=== PATIENT | male | born 1970 | race African-American/Black ===

== ENCOUNTER 2019-05-14 10:06 | Outpatient (CLI) | payer SELFPAY ==
--- NOTE | 2019-05-14 10:49 | RAD ---
XR Tib Fib Lt Leg 2 View INDICATION: Chronic leg pain FINDINGS: Bones: There is healed fracture forming involving the distal tibia and fibular shafts. There is intra medullary nupur within the distal tibia. There is lateral plate and screw construct affecting the lateral malleolus. Fracture appears well-healed. Joints: There is mild osteoarthrosis of the left knee. There is partial visualization instrumentation involving the distal femur. Soft tissues: No radiopaque foreign body is evident. IMPRESSION: Healed instrumented distal tibia fibular shaft fractures. Healed lateral malleolus or fra cture. Mild osteoarthrosis of the left knee.
--- NOTE | 2019-05-14 10:50 | RAD ---
XR Foot Lt 3 View STANDARD INDICATION: Chronic left foot pain COMPARISON: None. FINDINGS: Bones: There is moderate to severe great toe MTP osteoarthrosis. There is moderate scattered IP osteo arthrosis of the forefoot. There is moderate degenerative change within the mid foot. Lisfranc alignment is preserved. There is partial visualization instrumentation involving the distal tibia. Th ere is a healed lateral malleolus fracture with instrumentation. There is moderate degenerative change of the tibiotalar joint. Joints: Degenerative changes above Lisfranc alignment: As above Soft tissues: No soft tissue injury demonstrated. No radiographic foreign body demonstrated. IMPRESSION: Scattered osteoarthrosis of the left foot. No acute fracture demonstrated. Postoperative changes of the distal left foreleg and left ankle.
--- NOTE | 2019-05-14 11:58 | RAD ---
LEFT HIP 2 VIEWS: Date: 05/14/19 HISTORY: Chronic pain in the left hip. FINDINGS/IMPRESSION: Postop changes and metallic hardware in the left femur remain in good position and alignment since . There are mild degenerative changes in the left hip joint. No acute fracture, dislocation, or bony de struction is seen. POS: [facility]
--- NOTE | 2019-05-14 12:18 | RAD ---
LEFT KNEE 3 VIEWS: Date: 05/14/19 HISTORY: Knee pain. FINDINGS: Postoperative changes are noted. Intramedullary nupur with plate and screws transfix the distal femur a nd the femoral condyles. There is intramedullary nupur in the tibia. Moderate degenerative changes at t he knee joint. Mild narrowing of the medial joint space. Mild spurring from the condyles and posterio r patella. No joint effusion. IMPRESSION: Degenerative and postoperative changes noted. POS: [facility]
--- NOTE | 2019-05-14 12:19 | RAD ---
LEFT ANKLE 3 VIEWS: HISTORY: Ankle pain. FINDINGS: There are postoperative changes at the ankle. There are old healed fractures of the distal tibia and fibula. There has been prior internal fixation of the distal fibula plate and screws and an intrame dullary nupur is seen in the tibia. There are degenerative changes of the tibiotalar joint. No fractu re or acute abnormality. No significant soft tissue swelling. IMPRESSION: Postoperative and degenerative changes of the left ankle. POS: [facility]
--- NOTE | 2019-05-14 12:19 | RAD ---
LEFT FEMUR 4 VIEWS: Date: 05/14/19 HISTORY: Left lower extremity pain. FINDINGS: There is old healed fracture of the mid shaft of the femur. Intramedullary nupur is noted in the femur. Compression screw at the femoral neck. Plate and screws in the distal femur transfixing the femoral condyles. Degenerative changes at the hip noted with mild spurring from the femoral head and acetabulum. Extrao sseous calcification overlying the greater trochanter. Mild degenerative changes at the knee. No acut e fracture. IMPRESSION: Postoperative and degenerative changes noted. POS: [facility]
== END 2019-05-14 10:07 | disposition home or self-care (01) ==
LOC: MADRAD 10:06
PROVIDERS: ATTEND Family Medicine
DX: M25.572 Pain in left ankle and joints of left foot (principal); M79.671 Pain in right foot; M25.562 Pain in left knee; G89.29 Other chronic pain; M19.072 Primary osteoarthritis, left ankle and foot; M17.12 Unilateral primary osteoarthritis, left knee; M16.12 Unilateral primary osteoarthritis, left hip; Z96.642 Presence of left artificial hip joint; Z98.890 Other specified postprocedural states; Z87.81 Personal history of (healed) traumatic fracture

== ENCOUNTER 2020-02-28 12:24 | Outpatient (CLI) | payer OTHER ==
--- NOTE | 2020-02-28 13:09 | RAD ---
EXAM: XR Lumbar Spine 2 Or 3 View PROVIDED CLINICAL HISTORY: Back pain COMPARISON: None FINDINGS: 5 nonrib-bearing lumbar-type vertebral bodies are demonstrated. Lumbar alignment appears normal. Vert ebral body heights appear preserved. There is ankylosis of the L4-5 and L5-S1 disc spaces. Advanced multilevel lumbar facet arthritis. Pedicles appear intact. Intervertebral disc space heights appear o therwise preserved. IMPRESSION: Prominent multilevel lumbar facet degenerative change.
--- NOTE | 2020-02-28 13:09 | RAD ---
XR Hip Lt 2-3 View History: Chronic pain. No trauma Comparison: Radiograph 2019 Findings: No acute fracture or malalignment. Intramedullary nail with antirotation screws similar. The distal femoral hardware is not evaluated on this hip radiograph. The obturator rings are intact. Synovial herniation pits of the left femoral head/neck junction. Small ring osteophytes of the left f emoral head/neck junction as well as small acetabular osteophyte formation. Impression: Intact surgical hardware although the distal stem is not well seen. No acute osseous abno rmality.
--- NOTE | 2020-02-28 13:11 | RAD ---
Frontal and lateral imaging of the thoracic spine:: 02/28/2020 COMPARISON: None HISTORY: Chronic back pain, no history of trauma FINDINGS: There is multilevel mid and lower thoracic spine anterior and lateral osteophyte formation. The thoracic pedicles appear intact on the frontal examination. There is multilevel disc space narrow ing within the mid and lower thoracic spine. No acute fracture is noted. No anterolisthesis or retrolisthesis is appreciated. IMPRESSION: Degenerative change. No acute osseous abnormality.
--- NOTE | 2020-02-28 13:31 | RAD ---
LEFT KNEE 3 VIEWS: INDICATION: Chronic left knee pain. COMPARISON: Left knee radiograph dated 05/14/2019. FINDINGS: Instrumented intercondylar and supracondylar femur fracture does not appear appreciably changed. IM nail within the proximal tibia is similar appearing. No acute fracture is evident. No joint capsula r distention is noted. There is mild osteoarthrosis of the left knee. IMPRESSION: Stable left knee. POS: [facility]
== END 2020-02-28 12:25 | disposition home or self-care (01) ==
LOC: MADRAD 12:24
PROVIDERS: ATTEND Anesthesiology
DX: M25.562 Pain in left knee (principal); M25.552 Pain in left hip; M54.6 Pain in thoracic spine; M54.5 Low back pain; M47.814 Spondylosis without myelopathy or radiculopathy, thoracic region; M47.816 Spondylosis without myelopathy or radiculopathy, lumbar region; Z98.890 Other specified postprocedural states
CPT/HCPCS: 72070; 72100

== ENCOUNTER 2020-10-04 10:50 | Emergency (ER) | payer OTHER ==
[2020-10-04] MEDS ORDERED: Boostrix 0.5 ML (Tdap) VIAL ONE (11:30)
[2020-10-04 12:00] LABS: ALT (SGPT) 34 U/L (8-55); AST (SGOT) 31 U/L (5-34); Albumin 4.6 g/dL (3.5-5.0); Alkaline Phosphatase 56 U/L (40-110); Anion Gap 14 mmol/L (10-20); BUN (Urea Nitrogen) 16 mg/dL (8.4-25.7); Bilirubin, Total 0.5 mg/dL (0.2-1.2); CK (CPK) 799 U/L (30-200); Calc. Creatinine Clearance 0 mL/min (70-130); Calcium 9.3 mg/dL (7.8-10.44); Carbon Dioxide 26 mmol/L (22-29); Chloride 102 mmol/L (98-107); Globulin 3.3 g/dL (2.4-3.5); Glucose 90 mg/dL (70-105); Potassium 3.5 mmol/L (3.5-5.1); Protein, Total 7.9 g/dL (6.0-8.3); Sodium 138 mmol/L (136-145)
[2020-10-04 12:19] LABS: Anisocytosis SLIGHT = 6-15 cells (100X) (0-5/hpf); Eosinophils 3 % (0-10); Giant Platelets SLIGHT; Hemoglobin 13.6 g/dL (14.0-18.0); Large Platelets SLIGHT; Lymphocytes 53 % (21-51); MDiff Complete? YES; Mean Corpuscular HGB CONC 29.2 g/dL (32.0-36.0); Mean Corpuscular Hemoglobin 21.7 pg (27.0-31.0); Mean Corpuscular Volume 74.2 fL (78.0-98.0); Mean Platelet Volume 11.4 fL (7.4-10.4); Microcytosis SLIGHT = 6-15 cells (100X) (0-5/hpf); Monocytes 5 % (0-10); Neutrophil 37 % (42-75); Platelet Count 151 thou/uL (130-400); Platelet Morphology Comment Appears Adequate; RBC Distribution Width 12.5 % (11.5-14.5); Reactive Lymphocytes 2 % (0-10); Red Blood Cell (RBC) Count 6.26 mill/uL (4.70-6.10); Target Cells SLIGHT = 2-5 cells (100X) (0-1/hpf)
[2020-10-04 12:29] LABS: INR-International Normal Ratio 1.1; PTT 27.7 sec (22.9-36.1); Prothrombin Time 14.2 sec (12.0-14.7)
[2020-10-04 12:41] LABS: Bilirubin Negative (Negative); Blood, Urine Negative (Negative); Clarity Clear (Clear); Glucose, Urine (Dipstick) Negative (Negative); Ketone, Urine Negative (Negative); Leukocyte Negative (Negative); Nitrite Negative (Negative); Protein, Urine (Dipstick) Negative (Neg-Trace); Urobilinogen 0.2 mg/dL (Less than 2)
== END 2020-10-04 12:40 | disposition home or self-care (01) ==
LOC: MADERS 10:50
DX: T63.061A Toxic effect of venom of other North and South American snake, accidental (unintentional), initial encounter (principal); J45.909 Unspecified asthma, uncomplicated; G47.30 Sleep apnea, unspecified; I10 Essential (primary) hypertension; Z87.891 Personal history of nicotine dependence; Z79.899 Other long term (current) drug therapy
CPT/HCPCS: 36415; 80053; 81003; 82550; 85025; 85384; 85610; 85730; 90471; 90715

== ENCOUNTER 2022-06-13 09:14 | Emergency (ER) | payer OTHER ==
[2022-06-13] MEDS ORDERED: Ibuprofen 600 MG TAB ONE (10:13)
== END 2022-06-13 10:36 | disposition home or self-care (01) ==
LOC: MADERS 09:14
DX: S83.92XA Sprain of unspecified site of left knee, initial encounter (principal); S80.02XA Contusion of left knee, initial encounter; I10 Essential (primary) hypertension; W17.2XXA Fall into hole, initial encounter; Z87.891 Personal history of nicotine dependence

== ENCOUNTER 2024-03-12 12:35 | Emergency (ER) | payer OTHER ==
[2024-03-12] MEDS ORDERED: Lidocaine Viscous Sol 2% 15 ml UD Cup ONE (13:02)
== END 2024-03-12 13:44 | disposition home or self-care (01) ==
LOC: MADERS 12:35
DX: T16.2XXA Foreign body in left ear, initial encounter (principal); I10 Essential (primary) hypertension; Z87.891 Personal history of nicotine dependence
CPT/HCPCS: 69200

== ENCOUNTER 2024-08-03 20:10 | Emergency (ER) | payer OTHER ==
[2024-08-03] MEDS ORDERED: Sulfameth/Trimethoprim DS 800-160mg TAB ONE (21:15)
[2024-08-03] MEDS ORDERED: Cephalexin 500 MG CAP ONE (21:15)
== END 2024-08-03 21:24 | disposition home or self-care (01) ==
LOC: MADERS 20:10
DX: L03.90 Cellulitis, unspecified (principal); I10 Essential (primary) hypertension; E78.5 Hyperlipidemia, unspecified; Z87.891 Personal history of nicotine dependence; Z79.899 Other long term (current) drug therapy
CPT/HCPCS: 99283